=== PATIENT | male | born 1995 ===

== ENCOUNTER 2018-01-19 02:48 | Emergency (ER) | payer MEDICAID ==
--- NOTE | 2018-01-19 03:54 | ED PDOC ---
HPI: CCC, URI, Sore Throat Time Seen by Provider: 01/19/18 02:50 Chief Complaint (Nursing): Fever Chief Complaint (Provider): Fever, sore throat History Per: Patient History/Exam Limitations: no limitations Have you had recent travel within the past 21 days to any of the following countries: [place], [place], [place] or [place]?: No Onset/Duration Of Symptoms: Days Current Symptoms Are (Timing): Still Present Additional Complaint(s): 22 yo male with crohn's presents with sore throat and fever for 3 days. Pt did not take temperature at home but has been taking tylenol for pain and fever. Pt denies cough. Past Medical History Reviewed: Historical Data, Nursing Documentation, Vital Signs Vital Signs: Last Vital Signs Temp 99.1 F 01/19/18 03:19 Pulse 92 H 01/19/18 03:19 Resp 18 01/19/18 03:19 BP Pulse Ox 96 01/19/18 03:19 - Medical History PMH: Crohn's Disease - Surgical History Surgical History: Tonsillectomy - Family History Family History: States: Unknown Family Hx - Living Arrangements Living Arrangements: With Family - Social History Current smoker - smoking cessation education provided: No - Home Medications Home Medications: Ambulatory Orders Medication Instructions Recorded Amoxicillin 875 mg PO BID #20 tab 01/19/18 - Allergies Allergies/Adverse Reactions: Allergies Allergy/AdvReac Type Severity Reaction Status Date / Time morphine Allergy PAIN Verified 01/19/18 03:18 morphine Allergy RASH Uncoded 01/19/18 03:18 Review of Systems ROS Statement: Except As Marked, All Systems Reviewed And Found Negative Constitutional: Positive for: Fever, Chills ENT: Positive for: Throat Pain. Negative for: Ear Pain, Ear Discharge Physical Exam - Reviewed Nursing Documentation Reviewed: Yes Vital Signs Reviewed: Yes - Physical Exam Appears: Positive for: Well, Non-toxic, No Acute Distress Head Exam: Positive for: ATRAUMATIC, NORMAL INSPECTION, NORMOCEPHALIC Skin: Positive for: Normal Color, Warm, DRY Eye Exam: Positive for: Normal appearance ENT: Positive for: Pharynx Is, Pharyngeal Erythema, Tonsillar Exudate, Tonsillar Swelling Neck: Positive for: Normal, Painless ROM Cardiovascular/Chest: Positive for: Regular Rate, Rhythm Respiratory: Positive for: Normal Breath Sounds. Negative for: Accessory Muscle Use, Respiratory Distress Back: Positive for: Normal Inspection Extremity: Positive for: Normal ROM Lymphatic: Positive for: Adenopathy (Anterior cervical) Neurologic/Psych: Positive for: Alert, Oriented - ECG O2 Sat by Pulse Oximetry: 96 Pulse Ox Interpretation: Normal Disposition - Clinical Impression Clinical Impression: Strep pharyngitis - Patient ED Disposition Is Patient to be Admitted: No - Disposition Disposition: Routine/Home Disposition Time: 03:55 Condition: STABLE Prescriptions: Amoxicillin 875 mg PO BID #20 tab Instructions: Strep Throat (DC) Forms: [employer] [facility] ([place])
[2018-01-19 04:12] VITALS: BP 123/61; PULSE 74; RESP 14; TEMP 98.7; O2SAT 97
== END 2018-01-19 04:10 | disposition home or self-care (01) ==
LOC: H.ER 02:48
DX: J02.0 Streptococcal pharyngitis (principal); K50.90 Crohn's disease, unspecified, without complications